=== PATIENT | female | born 1945 | race Caucasian/White ===

== ENCOUNTER 2016-09-07 22:15 | Inpatient (IN) | payer MEDICARE, OTHER ==
[~2016-09-07] VITALS: Ht 152.4 cm; Wt 38.1 kg
[~2016-09-07 22:15] MED LIST: ALBUTEROL0.63 MG/3 INH; AMBIEN10 MG PO; ASPIRIN EC81 MG PO; ENSURE LIQUID237 ML PO; FLONASE 0.05% N16 GM; IPRAT-ALBUT 0.5-3 ML INH; LEVOCETIRIZINE D5 MG PO; LISINOPRIL5 MG PO; MEDROL DOSEPAK 24 MG PO; MIRTAZAPINE30 MG PO; MYSOLINE50 MG PO; NEURONTIN 400400 MG PO; NITROSTAT0.4 MG SL; PLAVIX75 MG PO; PROAIR HFA8.5 GM INH; SIMVASTATIN40 MG PO; SPIRIVA18 MCG INH; SYMBICORT 80-10.2 GM INH
[2016-09-07 23:17] LABS: HEMOGLOBIN 10.9 gm/dl (12.3-15.3); RED BLOOD COUNT 3.69 M/UL (4.00-5.10); WHITE BLOOD COUNT 11.4 K/UL (4.5-11.0)
[2016-09-07 23:38] LABS: BUN/CREATININE RATIO 25 (0-10)
[2016-09-08] MEDS ORDERED: ADVAIR 250-501 EACH INH (03:40)
[2016-09-08] MEDS ORDERED: ZANTAC 150 MG150 MG PO (03:41)
[2016-09-08] MEDS ORDERED: COMBIVENT0.074 GM/I INH (03:41)
[2016-09-08] MEDS ORDERED: DALIRESP500 MCG PO (03:41)
[2016-09-08] MEDS ORDERED: MEGACE SUSP40 MG/M1 PO (03:43)
[2016-09-08 05:02] LABS: HEMOGLOBIN 10.6 gm/dl (12.3-15.3); RED BLOOD COUNT 3.61 M/UL (4.00-5.10); WHITE BLOOD COUNT 13.6 K/UL (4.5-11.0)
[2016-09-08 05:24] LABS: BUN/CREATININE RATIO 27 (0-10)
[2016-09-09 03:58] LABS: HEMOGLOBIN 9.1 gm/dl (12.3-15.3)
[2016-09-09 04:01] LABS: WHITE BLOOD COUNT 7.5 K/UL (4.5-11.0)
[2016-09-09 04:02] LABS: RED BLOOD COUNT 3.15 M/UL (4.00-5.10)
[2016-09-09 04:17] LABS: BUN/CREATININE RATIO 30 (0-10)
[2016-09-10 04:08] LABS: RED BLOOD COUNT 3.37 M/UL (4.00-5.10); WHITE BLOOD COUNT 8.3 K/UL (4.5-11.0)
[2016-09-10 04:33] LABS: BUN/CREATININE RATIO 25 (0-10)
[2016-09-11] MEDS ORDERED: ENSURE ORIGINA237 ML PO (11:10)
[2016-09-11] MEDS ORDERED: LEVAQUIN500 MG PO (11:10)
[2016-09-11] MEDS ORDERED: MEDROL DOSEPAK 24 MG PO (11:11)
[2016-09-11] MEDS ORDERED: IPRAT-ALBUT 0.5-3 ML INH ×2 (11:14→11:15)
[2016-09-11] MEDS ORDERED: SPIRIVA18 MCG INH (11:15)
[2016-09-14] MEDS ORDERED: FERROUS SULFAT325 MG PO (14:13)
== END 2016-09-14 16:06 | disposition home health service (06) | DRG 189 ==
LOC: ER1 22:15 → PROG CARE 09-08 00:06 → CCU 09-08 00:06 → ZEROF 09-08 00:06 → CCU 09-08 03:30 → PROG CARE 09-08 15:32 → M/S 09-11 22:15
PROVIDERS: Internal Medicine; Internal Medicine Infectious Disease; Specialist/Technologist Athletic Trainer; ADMIT Internal Medicine
PROC: 5A09557 Assistance with Respiratory Ventilation, Greater than 96 Consecutive Hours, Continuous Positive Airway Pressure (ICD-10-PCS; principal; 2016-09-08)
DX: J96.22 Acute and chronic respiratory failure with hypercapnia (principal); J44.1 Chronic obstructive pulmonary disease with (acute) exacerbation; E46 Unspecified protein-calorie malnutrition; Z68.1 Body mass index [BMI] 19.9 or less, adult; J44.0 Chronic obstructive pulmonary disease with (acute) lower respiratory infection; R64 Cachexia; J98.11 Atelectasis; J44.9 Chronic obstructive pulmonary disease, unspecified; J96.21 Acute and chronic respiratory failure with hypoxia; I25.10 Atherosclerotic heart disease of native coronary artery without angina pectoris; I10 Essential (primary) hypertension; J30.9 Allergic rhinitis, unspecified; E78.5 Hyperlipidemia, unspecified; F41.9 Anxiety disorder, unspecified; R00.0 Tachycardia, unspecified; D64.9 Anemia, unspecified; Z99.81 Dependence on supplemental oxygen; G89.4 Chronic pain syndrome; M54.9 Dorsalgia, unspecified; G62.9 Polyneuropathy, unspecified; G25.0 Essential tremor; I73.9 Peripheral vascular disease, unspecified; F51.04 Psychophysiologic insomnia; M19.90 Unspecified osteoarthritis, unspecified site; Z79.02 Long term (current) use of antithrombotics/antiplatelets; Z79.899 Other long term (current) drug therapy; Z95.5 Presence of coronary angioplasty implant and graft; Z88.0 Allergy status to penicillin; Z87.891 Personal history of nicotine dependence; M79.606 Pain in leg, unspecified; R53.1 Weakness; J20.9 Acute bronchitis, unspecified; E61.1 Iron deficiency
CPT/HCPCS: 36415; 36600; 71250; 80048; 80053; 80061; 82550; 82553; 82607; 82728; 82746; 82803; 83540; 83550; 83605; 83874; 83880; 84439; 84443; 84484; 85025; 85027; 87070; 87077; 87205; 93005; 94640; 94660; 94664; 94760; 96365; 96372; 96375; 99285; J1650; J1956; J2920; J7030; J7509

== ENCOUNTER 2016-10-29 11:02 | Emergency (ER) | payer OTHER ==
[~2016-10-29 11:02] MED LIST changes: +ADVAIR 250-501 EACH INH; +COMBIVENT0.074 GM/I INH; +DALIRESP500 MCG PO; +ENSURE ORIGINA237 ML PO; +FERROUS SULFAT325 MG PO; +LEVAQUIN500 MG PO; +MEGACE SUSP40 MG/M1 PO; +ZANTAC 150 MG150 MG PO
[2016-10-29 12:13] LABS: HEMOGLOBIN 11.6 gm/dl (12.3-15.3); RED BLOOD COUNT 3.98 M/UL (4.00-5.10); WHITE BLOOD COUNT 6.5 K/UL (4.5-11.0)
[2016-10-29 12:37] LABS: BUN/CREATININE RATIO 26 (0-10)
== END 2016-10-29 14:20 | disposition home or self-care (01) ==
LOC: ER1 11:02
PROVIDERS: Physician Assistant
DX: J20.9 Acute bronchitis, unspecified (principal); J44.1 Chronic obstructive pulmonary disease with (acute) exacerbation; I11.9 Hypertensive heart disease without heart failure; I25.10 Atherosclerotic heart disease of native coronary artery without angina pectoris; J45.909 Unspecified asthma, uncomplicated; Z95.5 Presence of coronary angioplasty implant and graft; Z88.0 Allergy status to penicillin; Z87.891 Personal history of nicotine dependence; Z79.899 Other long term (current) drug therapy
CPT/HCPCS: 36415; 36600; 71010; 80053; 82550; 82553; 82803; 83605; 83690; 83874; 83880; 84484; 85025; 87040; 93005; 94664; 99284; J2930